=== PATIENT | male | born 1985 | race Caucasian/White ===

== ENCOUNTER → 2020-02-28 14:02 | Outpatient (CLI) | payer OTHER, SELFPAY ==
--- NOTE | 2020-02-28 | VAS_PTH ---
PATIENT: GONZALEZ DAVID LOC: [facility]#:[id number] AGE/SX: 40/M ROOM: RE02/28/[address]: Dr. Chris Rojo MD : 1985 BED: DIS: SPEC #: [id number] RECD: 02/28/20 13:53 STATUS: ADA ARTURO #: [id number] LUIGI: 02/28/20 00:[address]: Chris Rojo DEPT: SURGICAL PATHOLOGY RECD BY: Gilbert Victoria ENTERED: 03/03/20 09:24 SP TYPE: VAS OTHR DR: No Primary Care Phys Tissues: A - Vas deferens, NOS B - Vas deferens, NOS Procedures: Surgery Specimen Level II HEADER OPERATION: Bilateral partial vasectomy PRE-OP DIAGNOSIS: Sterilization TISSUE SUBMITTED: A - Right vas deferens, B - Left vas deferens MICROSCOPIC DIAGNOSIS A. Right vas deferens, segmental vasectomy: Complete cross-sections of vas deferens with no pathologic change. B. Left vas deferens, segmental vasectomy: Complete cross-sections of vas deferens with no pathologic change. AM:davy 03/04/20 MICROSCOPIC DESCRIPTION Slides are reviewed. GROSS DESCRIPTION A - Received is one container designated right vas deferens. The specimen consists of a tubular segment of valentine soft tissue measuring 0.6 cm in length and 0.4 cm in diameter. The entire specimen is submitted in one cassette. It will be sectioned at the time of embedding. B - Received is one container designated left vas deferens. The specimen consists of a tubular segment of valentine soft tissue measuring 1 cm in length and 0.3 cm in diameter. The entire specimen is submitted in one cassette. It will be sectioned at the time of embedding. / SJ:davy 03/03/20 TC:4 [facility]: [id number]
[2020-02-28 13:01] VITALS: BMI 36.3
== END ==
PROVIDERS: Referring Provider Surgery; Visit Provider Surgery
DX: Z30.2 Encounter for sterilization (principal)
CPT/HCPCS: 88302